=== PATIENT | female | born 1935 | race Caucasian/White ===

== ENCOUNTER 2016-06-24 15:18 | Emergency (ER) | payer OTHER, BC ==
[2016-06-24 15:37] VITALS: RESP 15; TEMP 97.3
--- NOTE | 2016-06-24 15:38 | PDOC ---
Neck Pain / Injury HPI - General Chief Complaint: Neck / Back Complaint Stated Complaint: NECK PAIN FOR ONE MONTH Date Seen by Provider: 06/24/16 Time Seen by Provider: 15:34 Source: POSITIVE: Patient Exam Limitations: POSITIVE: No limitations Nurse's Notes Reviewed & Considered: Yes - History of Present Illness Initial Comments: Patient comes in today with a chief complaint of left-sided neck and shoulder pain. Patient has three-week history of escalating neck pain and shoulder pain. She denies any history of trauma. She does have limited range of motion with rotatory movement of her head secondary to pain. She denies any headache, no fever chills or sweats, no chest pain, no shortness of breath, no nausea vomiting or diarrhea, no hematuria or dysuria. Patient denies any loss of strength in her upper extremities, no distal tingling or loss of sensation. Patient has been using heat with limited benefit. The pain is always present, however it is worse at sometimes compared to others. The pain is now interfering with her ability to work. Patient continues to work 3 days a week at the [employer] in [place]. She lives at home alone, and takes care of all of the work needed at home. Body Location Affected: REPORTS: Neck Timing: REPORTS: Constant, Getting Worse Severity: Severe Quality: REPORTS: Cramping, "Pain", Stabbing, Tenderness Duration: >1 week (Approximately 3 weeks) Context: REPORTS: Activity Recent Injury: REPORTS: No Location at Time of Onset: REPORTS: Home Concurrent Injuries: REPORTS: Other (No other injuries) Modifying Factors: improves with: Analgesics, Remaining Still (Heat on her neck and shoulder help the pain.) Associated Symptoms: REPORTS: Denies symptoms Similar Symptoms Previously: No Recent Care Received: REPORTS: Denies Any Prior Injuries Related to Current Complaint?: No - Patient Home Medications Home Medications: Home Medications Acetaminophen [Tylenol Arthritis] 650 mg PO Q8H PRN 06/24/16 Ibuprofen [Advil] 400 mg PO Q6H PRN 06/24/16 Naproxen Sodium [Aleve] 220 mg PO Q12H PRN 06/24/16 - Patient Allergies Allergies/Adverse Reactions: Allergies Allergy/AdvReac Type Severity Reaction Status Date / Time Influenza Virus Vaccines AdvReac Intermediate DIZZINESS Verified 06/24/16 15:25 [Influenza Virus V *RETIRED-05/05/12] Past Medical History - heen HEENT History: Cataracts, Dentures/Partials Cardiovascular History: Hypertension Respiratory History: COPD Gastrointestinal History: Denies History Additional Gastrointestinal History: Hx of appendectomy. 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 Neurological History: Denies History Blood Disorders: Denies History Psychiatric History: Depression History of Sexually Transmitted Diseases: No Cancer History: Denies History History of MDRO: No History of Other Communicable Diseases: No Alcohol Use: None Substance Use Type: None Previous Surgical History: Yes Type / Date of Surgery: RIGHT PATELLA ORIF/BILAT KNEE SCOPE/ SHOULDER SCOPE/ L4- 5 PLIF/ TUBAL /APPENIX/ COLPOCLESIS, TVT/ LEEP Anesthesia Reactions: No Malignant Hyperthermia: No Significant Family History: Heart disease, Cancer ROS - Limitations ROS Limitations: No Limitations Constitution: REPORTS: Denies Symptoms Cardiovascular: REPORTS: Denies Cardiac Symptoms Respiratory: REPORTS: Denies Resp Symptoms Neurological: REPORTS: Denies Neuro Symptoms Gastrointestinal: REPORTS: Denies GI Symptoms Endocrine: REPORTS: Denies Symptoms Musculoskeletal: REPORTS: Muscle Aches (Muscle pain of the left trapezius.), Neck Pain Genitourinary: REPORTS: Denies Symptoms Eyes: REPORTS: Denies Symptoms ENT: REPORTS: Denies Symptoms Skin: REPORTS: Denies Skin Symptoms Lympathic: REPORTS: Denies Lympathic Symptoms Immunologic: POSITIVE: Denies Symptoms Psychiatric: POSITIVE: Denies Psych Symptoms Neck Pain/Injury Exam - General Appearance General Appearance: REPORTS: Alert, Cooperative, No Evidence of Trauma, Mild Distress - HEENT HEENT: POSITIVE: Head Inspection Nml, Eyes Inspection Nml, Ears Inspection Nml, Nose Inspection Nml, PERRL, EOMI - Pupil Size Pupil Size: 5 mm: Bilateral - Neck Neck: POSITIVE: Muscle Spasm (Muscle spasm of the trapezius and left lateral neck), Decreased ROM - Back Back: REPORTS: Normal Inspection, No CVA Tenderness, Non Tender, Painless ROM - Respiratory / CVS Respiratory / CVS: POSITIVE: Chest Non Tender, No Respiratory Distress - Abdomen Abdomen: Denies Tenderness: (All Quadrants) - Skin Skin: REPORTS: Intact, Normal For Race, Warm, Dry, No Rash - Extremities Extremity Assessment: Non-Tender: (ALL), Normal ROM: (ALL), No Edema: (ALL) - Neurological / Psychological Neuro / Psych: POSITIVE: Oriented x3, Motor Normal, Sensation Normal, Canned Food Reconditioning Inspector Normal, Canned Food Reconditioning Inspector Symmetrical, Reflexes Normal, Mood Appropriate, Affect Appropriate Reflexes: Radial (R): 3+, Radial (L): 3+ Neck Pain/Injury Progress - Results Reviewed by me Xrays/CTs/US Reviewed by me: Yes Discussed with Radiologist: No - Patient's Progress Pain Medication Addressed: POSITIVE: Yes Re-Examine Time: 16:16 Status: POSITIVE: Unchanged MDM / ED Course: Patient was examined, radiographic examination of her neck was obtained. Findings: My review of cervical spine x-rays shows degenerative disease present that is extensive. Assessment: Osteoarthritis with cervical muscle spasms. Plan: Discharge home, heat packs, baclofen, and physical therapy evaluation and treatment. Dexter understands she is to return if she has numbness or loss of strength in her arm. - Consult Counseled: POSITIVE: Patient, RE: Radiology Results, RE: DX, RE: Need for F/U Patient Care Time - Estimated PCT Patient Care Time (In Minutes): 30 Vital Signs - Recent Vital Signs Vital Signs: Vital Signs (Last 8 hours) Temp Pulse Resp BP Pulse Ox 06/24/16 15:53 97.3 F 06/24/16 15:18 97.3 F 100 15 179/99 96 - VS Reviewed Vital Signs Reviewed: Yes Discharge Clinical Impression: Neck pain, Muscle spasm Discharge Disposition: Discharged to Home Condition: Stable Patient Instructions Given at Discharge: Muscle Spasm (ED), Cervical Radiculopathy (ED)
[2016-06-24] MEDS ORDERED: IBUPROFEN 400 MG TABLET PO ONE (15:42)
--- NOTE | 2016-06-24 16:38 | DI ---
CERVICAL SPINE SERIES, 06/24/2016 3:32 PM: Clinical History: Left neck pain. Previous Exam: None at this facility. 3 routine upright views are submitted. The vertebral bodies are normal in height and size. There is s evere disc space narrowing at C5-6 and C6-7 and both levels have anterior and posterior bony prolifer ative change. There is anterior subluxation of C4 on C5 by 1-2 mm. The remaining cervical disc spaces are of normal height. Degenerative arthritic changes are present in all of the zygapophyseal joints bilaterally but most pronounced between C3-4 and C7-T1 on the right side and C4-5 and C5-6 on the lef t side. Severe arthritic changes are also present in the uncovertebral joints bilaterally at C5-6 and C6-7. C1 articulates normally with C2 and the occiput. Prevertebral soft tissue planes are normal. C alcifications are present in both carotid bifurcations. Readin. Severe disc space narrowing at C5-6 and C6-7 with anterior and posterior bony proliferative sorensen e. 2. Anterior subluxation of C4 on C5 by approximately 1-2 mm. 3. Degenerative arthritic changes in the apophyseal joints as above.
== END 2016-06-24 16:27 | disposition home or self-care (01) ==
LOC: ER 15:18
DX: M47.812 Spondylosis without myelopathy or radiculopathy, cervical region (principal); M62.838 Other muscle spasm; M25.512 Pain in left shoulder; M54.2 Cervicalgia
CPT/HCPCS: 72040; 99282

== ENCOUNTER → 2016-07-20 | Outpatient (CLI) | payer OTHER, BC ==
[2016-07-20 17:27] LABS: BASOPHILS # (AUTO) 0.03 10*3/UL; BASOPHILS % (AUTO) 0.3 % (0-1); EOSINOPHILS % (AUTO) 3.3 % (0-8); HEMATOCRIT 36.8 % (37.0-47.0); HEMOGLOBIN 12.2 g/dL (12.0-16.0); LYMPHOCYTES # (AUTO) 2.04 10*3/uL; MEAN CORPUSCULAR HEMOGLOBIN 27.7 PG (27-31); MEAN CORPUSCULAR HGB CONC 33.2 g/dL (33-37); MEAN CORPUSCULAR VOLUME 83.6 FL (81-99); MEAN PLATELET VOLUME 10.4 FL (7.4-12.2); MONOCYTES # (AUTO) 0.58 10*3/UL (0.3-0.8); MONOCYTES % (AUTO) 6.4 % (5-15); NEUTROPHILS # (AUTO) 6.06 10*3/UL; NEUTROPHILS % (AUTO) 67.3 % (50-80)
[2016-07-20 17:43] LABS: BUN/CREATININE RATIO 18.33 (6-20); CALCIUM 9.1 mg/dL (8.7-10.7); SERUM ALBUMIN 4.2 g/dL (3.5-4.8)
[2016-07-20 18:09] LABS: CHOL/HDL RATIO 6.86 RATIO (0-4.0)
[2016-07-20 18:22] LABS: PLATELET MORPHOLOGY COMMENT NORMAL MORPHOLOGY (NORM); RBC MORPHOLOGY COMMENT NORMAL MORPHOLOGY (NORM); WBC MORPHOLOGY COMMENT NORMAL MORPHOLOGY (NORM)
== END ==
LOC: MOB LAB 16:44
DX: I10 Essential (primary) hypertension (principal); E03.9 Hypothyroidism, unspecified; E78.5 Hyperlipidemia, unspecified; E55.9 Vitamin D deficiency, unspecified
CPT/HCPCS: 36415; 80053; 80061; 82306; 84443; 85025

== ENCOUNTER → 2016-08-18 | Outpatient (CLI) | payer OTHER, BC | LOC: MMPC 11:11 | DX: M54.2 Cervicalgia (principal); E78.5 Hyperlipidemia, unspecified; E03.9 Hypothyroidism, unspecified; F32.9 Major depressive disorder, single episode, unspecified; M54.5 Low back pain; N39.3 Stress incontinence (female) (male); K21.9 Gastro-esophageal reflux disease without esophagitis; F17.210 Nicotine dependence, cigarettes, uncomplicated | CPT/HCPCS: 99213; G0463 ==